=== PATIENT | female | born 1995 | race Caucasian/White ===

== ENCOUNTER 2017-11-30 21:01 | Emergency (ER) | payer BC ==
[~2017-11-30] VITALS: Ht 162.6 cm; Wt 65.9 kg
[2017-11-30 21:10] VITALS: Ht 162.6 cm; Wt 65.9 kg
--- NOTE | 2017-11-30 21:39 | DIAGNOSTIC IMAGING REPORT ---
R ANKLE MIN 3 VIEWS ROUTINE CLINICAL HISTORY: injury to right ankle trauma COMPARISON: None. DISCUSSION: Nondisplaced oblique fracture distal fibula. Ankle mortise is aligned anatomically. Mild soft tissue edema. Subtalar joint is intact. IMPRESSION: Nondisplaced oblique fracture distal fibula. The above report was generated using voice recognition software. It may contain grammatical, syntax or spelling errors. Electronically signed by: Chema Hebert M.D. 11/30/2017 9:38 PM Dictated Date/Time: 11/30/2017 9:37 PM
[2017-11-30] MEDS ORDERED: OXYCODONE HCL IR 5 MG TAB (IMMEDIATE RELEASE) PO STA (22:16)
[2017-11-30] MEDS ORDERED: OXYC-57 PO (22:44)
--- NOTE | 2017-11-30 22:44 | EMERGENCY ROOM VISIT NOTE ---
History First contact with patient: 21:41 Chief Complaint: ANKLE PAIN Stated Complaint: R ANKLE PAIN History of Present Illness The patient is a 22 year old female who presents to the Emergency Room with complaints of an injury to her right ankle. The patient reports that she fell while ice skating approximately 1 hour prior to arrival. The patient fell forward and felt a popping sensation in her right ankle. She reports that she has some tingling in her right toes. She has a persistent throbbing, burning pain in her right ankle and she rates her discomfort an 8/10. She denies any prior injuries to this ankle. The pain is worse when she attempts to walk. She is not able to bear weight. She denies any numbness or weakness. She did not take anything for pain prior to arrival. Review of Systems A complete 10 point review of systems was reviewed with the patient with pertinent positives and negatives as per history of present illness. All else were negative. Past Medical/Surgical History Medical Problems: (1) No significant active problems Social History Smoking Status: Current Every Day Smoker Housing Status: lives with roommate Occupation Status: [employer] Current/Historical Medications Scheduled PRN Oxycodone/Acetaminophen 5MG/325MG (Percocet 5MG/325MG), 1-2 TABS PO Q4H PRN for Pain Physical Exam Vital Signs Date Time Temp Pulse Resp B/P (MAP) Pulse Ox O2 Delivery O2 Flow Rate FiO2 11/30/17 22:54 36.5 81 18 129/66 99 11/30/17 21:10 36.5 81 18 129/66 99 Room Air Physical Exam VITALS: Vitals are noted on the nurse's note and reviewed by myself. Vital signs stable. GENERAL: This is a 22-year-old, anxious appearing, well-developed well- nourished. SKIN: No lacerations or abrasions MUSCULOSKELETAL: There is moderate swelling and ecchymosis to the lateral aspect of the right ankle. Pain with plantarflexion and dorsiflexion. No obvious deformity. Patient has tenderness to palpation specifically over the lateral malleolus. Dorsalis pedis pulse 2+. Capillary refill within 2 seconds. NEURO: Patient was alert and oriented to person place and time. Medical Decision & Procedures ER Provider Diagnostic Interpretation: R ANKLE MIN 3 VIEWS ROUTINE CLINICAL HISTORY: injury to right ankle trauma COMPARISON: None. DISCUSSION: Nondisplaced oblique fracture distal fibula. Ankle mortise is aligned anatomically. Mild soft tissue edema. Subtalar joint is intact. IMPRESSION: Nondisplaced oblique fracture distal fibula. Medications Administered Medications (Trade) Dose Ordered Sig/Kolby Route Start Time Stop Time Status Last Admin Dose Admin Oxycodone HCl (Roxicodone Immediate Rel Tab) 5 mg NOW STAT PO 11/30/17 22:16 11/30/17 22:17 DC 11/30/17 22:22 5 MG Oxycodone/ Acetaminophen (Percocet 5/ 325MG Home Pack) 1 homepack UD ONCE PO 11/30/17 22:45 11/30/17 22:46 DC 11/30/17 22:47 1 HOMEPACK Medical Decision Differential diagnosis includes fracture, sprain, contusion, among others. The patient is a 22-year-old female who presents today complaining of right ankle injury. X-ray showed a fracture of the distal fibula. Patient was placed in an Ortho-Glass posterior and stirrup splint by the ED aerospace technician under my supervision. Neurovascular status was reassessed by myself and was intact. Patient was given crutches. She was given information for orthopedic follow-up. She was treated with OxyIR in the ER and was given prescription for Percocet. She verbalized understanding of my assessment and treatment plan was discharged home in good condition. [place] Drug Monitoring Program Search Results: patient reviewed within database, no issues identified Medication Reconcilliation Current Medication List: was personally reviewed by me Blood Pressure Screening Patient's blood pressure: Normal blood pressure Impression Primary Impression: Fracture of distal end of right fibula Departure Information Dispostion Home / Self-Care Condition GOOD Prescriptions Oxycodone/Acetaminophen 5MG/325MG (PERCOCET 5MG/325MG) Tab 1-2 TABS PO Q4H Y for Pain, #15 TAB For Initial Treatment Prov: Gretchen Randall PA-C 11/30/17 Referrals No Doctor, Assigned (PCP) Scott Gutierrez MD Patient Instructions My [facility] Additional Instructions You have been treated in the Emergency Department for an Ankle fracture. You have received pain medicine in the emergency department which impairs your ability to operate a vehicle. It is illegal for you to drive after receiving these medicines. You have been prescribed Percocet to be used for pain control. This is a narcotic medication. You cannot drive or consume alcohol while on this medicine. This medicine should only be used for pain that cannot be controlled with [id number] pain medicines. For pain control, you can use the following [id number] medicines (if >12 yo): - Regular strength (325mg/tab) Tylenol (acetaminophen) 2 tabs every 4-6 hours as needed. Do not exceed 12 tablets in a 24 hour period. Avoid taking more than 4 grams (4000 mg) of Tylenol per day. This includes any other sources of acetaminophen you may take on a regular basis. - Regular strength (200 mg/tab) Advil (ibuprofen) 1-2 tabs every 4-6 hours as needed. Do not exceed a dose of 3200 mg per day. If this is a recent injury (<24 hrs), ice can be applied to the area of pain for the first 3 days to help decrease pain and inflammation. You have been provided the number for an Orthopaedic Surgeon. You should call this number as soon as possible to establish a follow-up visit from today's Emergency Department visit. Keep the ankle brace/splint in place until cleared by Orthopedics. Use the crutches you have been provided to keep ALL weight off of the ankle until weight bearing is tolerable. Return to the Emergency Department if your current symptoms worsen despite treatment course outlined above, or if you develop any of the following symptoms : intractable pain despite aforementioned treatment course or new onset of numbness or tingling of the foot. Problem Qualifiers Primary Impression: Fracture of distal end of right fibula Encounter type: initial encounter Fracture type: closed Fracture morphology : other fracture Qualified Codes: S82.831A - Other fracture of upper and lower end of right fibula, initial encounter for closed fracture
[2017-11-30] MEDS ORDERED: PERCOCET HOME PACK PO ONE (22:45)
[2017-11-30 22:54] VITALS: BP 129/66; PULSE 81; TEMP 36.5; O2SAT 99
== END 2017-11-30 22:54 | disposition home or self-care (01) ==
LOC: C.EDB 21:04 → C.EDD 22:54
DX: S82.831A Other fracture of upper and lower end of right fibula, initial encounter for closed fracture (principal); V00.211A Fall from ice-skates, initial encounter; Y93.21 Activity, ice skating; F17.200 Nicotine dependence, unspecified, uncomplicated